=== PATIENT | female | born 1995 | race Asian ===

== ENCOUNTER → 2020-11-20 | Outpatient (CLI) | payer OTHER | LOC: COL.RAD 06:55 | DX: R10.11 Right upper quadrant pain (principal); R74.01 Elevation of levels of liver transaminase levels; R94.5 Abnormal results of liver function studies ==

== ENCOUNTER 2022-02-12 09:46 | Observation (INO) | payer OTHER ==
[~2022-02-12] VITALS: Ht 165 cm; Wt 72.7 kg
[2022-02-12 10:47] LABS: BASO % 0.5 % (0.0-2.0); EOS # 0.1 K/mm3 (0.0-0.7); EOS % 1.2 % (0.0-4.0); GRAN # 3.3 K/mm3 (1.4-6.5); GRAN % 57.2 % (42.2-75.2); HEMOGLOBIN 13.9 g/dl (12.5-16.0); LYMPH % 33.9 % (20.0-51.0); MEAN CELL VOLUME 81 fl (80.0-100.0); MEAN CORPUSCULAR HEMOGLOBIN 28 pg (27-31); MEAN CORPUSCULAR HGB CONC 35 g/dl (33.0-37.0); MEAN PLATELET VOLUME 9.8 fl (7.4-10.4); MONO # 0.4 K/mm3 (0.1-0.6); PLATELET COUNT 271 K/mm3 (130-400); RED BLOOD COUNT 4.92 M/mm3 (4.10-5.30); REDCELL DISTRIBUTION WIDTH-CV 11.7 % (11.5-14.5)
[2022-02-12 11:04] LABS: ALANINE AMINOTRANSFERASE 25 U/L (0-55); ALBUMIN 4.5 gm/dL (3.5-5.0); ALKALINE PHOSPHATASE 43 U/L (40-150); ANION GAP 12 mmol/L (7-16); AST,SGOT 18 U/L (5-34); BILIRUBIN,TOTAL 0.3 mg/dL (0.2-1.2); BLOOD UREA NITROGEN 12 mg/dL (7-19); CALCIUM 9.5 mg/dL (8.4-10.2); CARBON DIOXIDE 23 mmol/L (22-29); CHLORIDE 106 mmol/L (98-107); CREATININE, serum 0.75 mg/dL (0.57-1.11); GLUCOSE 92 mg/dL (70-99); MAGNESIUM 1.9 mg/dL (1.6-2.6); SODIUM 141 mmol/L (136-145); TOTAL PROTEIN 7.3 gm/dL (6.2-8.1)
[2022-02-12 11:24] LABS: TROPONIN-I < 0.010 ng/mL (0.00-0.033); TSH w REFLEX 1.233 uIU/mL (0.350-4.940)
[2022-02-12 14:17] VITALS: BP 125/91; PULSE 107; TEMP 98
--- NOTE | 2022-02-12 14:35 | NUR ---
PT ADMITTED TO UNIT. ADMISSION INTAKE AND ASSESSMENT COMPLETED. PT ORIENTED TO ROOM. REPORTS 1/10 CHEST PAIN AT THIS TIME. DENIES SOB. WILL CONTINUE TO MONITOR.
[2022-02-12 15:20] VITALS: BP 132/87; PULSE 100; TEMP 99.2
--- NOTE | 2022-02-12 17:34 | NUR ---
PT DENIES ANY NEEDS. RESTING IN BED. WILL CONTINUE TO MONITOR.
[2022-02-12 20:18] VITALS: BP 132/94; PULSE 93; TEMP 98.3
[2022-02-12 23:38] VITALS: BP 126/87; PULSE 85; TEMP 97.9
[2022-02-13 03:55] VITALS: BP 112/84; PULSE 91; TEMP 97.7
--- NOTE | 2022-02-13 05:33 | NUR ---
ASSESSMENT COMPLETE FOR THIS SHIFT. PT SITTING UP IN BED WATCHING TV. PT DENIED PAIN, PALPITATIONS, SOB, N,V,D OR DIZZINESS. PT HAD A PRETTY UNEVENTFUL NIGHT. PT EXPRESSED NO OTHER NEEDS AT THIS TIME. CALL LIGHT WITHIN REACH.
[2022-02-13 06:21] LABS: BASO % 0.6 % (0.0-2.0); EOS # 0.1 K/mm3 (0.0-0.7); EOS % 1.7 % (0.0-4.0); GRAN # 2.6 K/mm3 (1.4-6.5); GRAN % 41.9 % (42.2-75.2); HEMATOCRIT 40.6 % (37.0-47.0); HEMOGLOBIN 13.6 g/dl (12.5-16.0); LYMPH % 47.7 % (20.0-51.0); MEAN CELL VOLUME 85 fl (80.0-100.0); MEAN CORPUSCULAR HEMOGLOBIN 28 pg (27-31); MEAN CORPUSCULAR HGB CONC 34 g/dl (33.0-37.0); MEAN PLATELET VOLUME 9.8 fl (7.4-10.4); MONO # 0.5 K/mm3 (0.1-0.6); MONO % 7.9 % (1.7-9.3); PLATELET COUNT 260 K/mm3 (130-400); REDCELL DISTRIBUTION WIDTH-CV 11.6 % (11.5-14.5)
[2022-02-13 06:43] LABS: ALBUMIN 4.2 gm/dL (3.5-5.0); CALCIUM 9.3 mg/dL (8.4-10.2); CREATININE, serum 0.82 mg/dL (0.57-1.11); PHOSPHOROUS 4.6 mg/dL (2.3-4.7)
--- NOTE | 2022-02-13 07:06 | NUR ---
PT RESTING IN BED. SHIFT ASSESSMENT COMPLETED. PT DENIES ANY CHEST PAIN OR SOB AT THIS TIME. DENIES ANY NEEDS. WILL CONTINUE TO MONITOR.
[2022-02-13 07:59] VITALS: BP 115/94; PULSE 86; TEMP 97.7
--- NOTE | 2022-02-13 09:28 | NUR ---
Initial visit; Patient thanked Informatics Scientist for introducing herself and offering Blessings.
--- NOTE | 2022-02-13 10:48 | NUR ---
SW met with the patient to discuss discharge plan. The patient lives alone in [place]. 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 She declined having SW contact the Office of Student Life. She states that she has already notified her professors. She reports independence with ADLs and does not have any DME. The patient receives primary care and her medications from [facility]. The patient does not have a DPOA-HC. Her mother, Raad Fermin, and father live in [place]. The patient has her fiance, Jose Raines, as her person to contact. The patient plans on returning home upon discharge. No additional needs at this time. *Discharge plan: home*
--- NOTE | 2022-02-13 12:39 | NUR ---
DISCHARGE INSTRUCTIONS GIVEN, ALL QUESTIONS ANSWERED. IV D/C. WILL ESCORT PT OFF OF UNIT.
[2022-02-13 12:48] VITALS: BP 118/79; PULSE 105; TEMP 98.1
--- NOTE | 2022-02-13 12:51 | NUR ---
PT ESCORTED DOWN TO VEHICLE. WILL D/C FROM SYSTEM.
== END 2022-02-13 12:51 | disposition home or self-care (01) ==
LOC: COL.ER 09:46 → MEDICAL 12:59
PROVIDERS: Emergency Medicine; ADMIT Internal Medicine
DX: R07.89 Other chest pain (principal); I45.6 Pre-excitation syndrome; Z79.899 Other long term (current) drug therapy
CPT/HCPCS: 99239; G0378; J1650